=== PATIENT | female | born 2005 | race Two or more races ===

== ENCOUNTER → 2025-01-31 | Outpatient (CLI) | payer OTHER, SELFPAY ==
[2025-01-31 11:06] LABS: Collection Type, Urine Clean Catch
[2025-01-31 11:33] LABS: Basophils # (Auto) 0.0 Thou/mm3 (0.0-0.2); Basophils % (Auto) 0 % (0-2.5); Eosinophils # (Auto) 0.1 Thou/mm3 (0.0-0.5); Eosinophils % (Auto) 2 % (0-10); Hematocrit 45.4 % (36.0-46.0); Hemoglobin 15.0 g/dL (12.0-16.0); Immature Granulocytes Auto 0.01 Thou/mm3 (0.00-0.00); Lymphocytes # (Auto) 3.5 Thou/mm3 (1.0-5.0); Lymphocytes % (Auto) 46 % (10-50); Mean Corpuscular HGB Conc 33.0 g/dl (31.0-37.0); Mean Corpuscular Hemoglobin 29.4 pg (25.0-35.0); Mean Corpuscular Volume 89 fL (80-100); Monocytes # (Auto) 0.4 Thou/mm3 (0.0-0.8); Monocytes % (Auto) 6 % (0-12); Neutrophils # (Auto) 3.5 Thou/mm3 (1.8-7.7); Neutrophils % (Auto) 46 % (37-80); Nucleated Red Blood Cell # 0.00 Thou/mm3 (0.00-0.00); Nucleated Red Blood Cell % 0 /100 WBC (0); Platelet Count 245 Thou/mm3 (140-440); RDW Standard Deviation 44.3 fL (36.4-46.3); Red Blood Count 5.10 Miln/mm3 (4.00-5.20); White Blood Count 7.5 Thou/mm3 (4.5-11.0)
[2025-01-31 11:46] LABS: Alanine Aminotransferase 16 U/L (10-49); Albumin, Serum 4.5 gm/dL (3.5-5.0); Albumin/Globulin Ratio 1.6 (1.2-2.2); Alkaline Phosphatase 77 U/L (46-116); Anion Gap 9 (7-16); Aspartate Amino Transferase 16 U/L (0-34); BUN/Creatinine Ratio 11 Ratio (12-20); Bilirubin,Total 0.5 mg/dL (0.3-1.2); Blood Urea Nitrogen 9 mg/dL (9-23); Calcium 10.1 mg/dL (8.3-10.6); Calcium (Corrected) 10.1 mg/dL (8.5-10.1); Carbon Dioxide 26.0 mMol/L (20.0-31.0); Cardiac Risk Estimate 2.8 RATIO (3.7-5.6); Chloride 107 mMol/L (98-107); Cholesterol 204 mg/dL (132-200); Creatinine (Component) 0.8 mg/dL (0.6-1.3); Free T4 (Free Thyroxine) 1.23 ng/dL (0.89-1.76); Globulin 2.8 gm/dL (2.3-3.5); Glucose 85 mg/dL (74-106); HDL Cholesterol 74 mg/dL (40-60); LDL Cholesterol,Calculated 102 mg/dL (0-130); Osmolality,Calculated 280 (275-295); Potassium 4.2 mMol/L (3.4-5.1); Sodium 142 mMol/L (136-145); Thyroid Stimulating Hormone 2.48 uIU/mL (0.55-4.78); Total Protein 7.3 gm/dL (5.7-8.2); Triglycerides 140 mg/dL (30-150); eGFR > 60 See Note
[2025-01-31 11:50] LABS: Vitamin D 25 Hydroxy Total 19.4 ng/mL (7.3-40.2)
[2025-01-31 11:52] LABS: Bilirubin,Urine Negative (Negative); Blood,Urine Negative (Negative); Clarity,Urine Clear (Clear/Hazy); Color,Urine Yellow (Lt Yel-Yel); Culture Indicated,Urine Not Indicated; Glucose, Urine Negative (Negative); Ketones,Urine Negative (Negative); Leukocyte Esterase,Urine Negative (Negative); Nitrite,Urine Negative (Negative); PH,Urine 6.0 (5.0-7.0); Protein,Urine Negative (Neg - Trace); RBC,Urine 2 /hpf (0-3); Specific Gravity,Urine 1.028 (1.001-1.035); Squamous Epithelial Cell,Urine 3 /hpf (0-5); Urobilinogen,Urine Negative mg/dL (0.0-1.0); WBC,Urine 1 /hpf (0-5)
[2025-02-03 06:56] LABS: Thyroid Peroxidase Antibodies* <1 IU/mL (<9)
== END | disposition home or self-care (01) ==
PROVIDERS: PCP Nurse Practitioner Family; Referring Provider Nurse Practitioner Family; Visit Provider Nurse Practitioner Family
DX: Z00.00 Encounter for general adult medical examination without abnormal findings (principal); Z13.29 Encounter for screening for other suspected endocrine disorder; Z13.1 Encounter for screening for diabetes mellitus; Z13.0 Encounter for screening for diseases of the blood and blood-forming organs and certain disorders involving the immune mechanism; E03.9 Hypothyroidism, unspecified; N39.0 Urinary tract infection, site not specified; E55.9 Vitamin D deficiency, unspecified; Z13.220 Encounter for screening for lipoid disorders; Z79.899 Other long term (current) drug therapy
CPT/HCPCS: 36415; 80053; 80061; 81001; 82306; 84439; 84443; 85025; 86376

== ENCOUNTER 2025-03-26 11:02 | Emergency (ER) | payer OTHER, SELFPAY ==
[2025-03-26 11:27] VITALS: BP 97/60; PULSE 88; RESP 18; TEMP 36.8; O2SAT 98; BMI 17.8
--- NOTE | 2025-03-26 13:08 | PD.EDALLER ---
ED Allergic Reaction RME/HPI General Chief complaint: Allergic Reaction Stated complaint: POSSIBLE ALLERGIC REACTION TO NEW MEDICATION Time Seen by Provider: 03/26/25 12:38 Arrival date/time: 03/26/25 11:02 RME / HPI RME / HPI narrative: 19-year-old female who was recently placed on lamotrigine for mental health was advised to discontinue this after taking it for nearly 2 weeks by her doctor as she began to develop a rash last night and they advised that she come to the ER and get evaluated. Patient has taken Benadryl with minimal improvement. Denies shortness of breath, rash inside of her mouth, shortness of breath, vomiting. Related Data Previous Rx's ?Medication ?Instructions ?Recorded ibuprofen 100 mg/5 mL oral 10 ml PO Q6HR PRN pain 7 days ##0 08/27/14 suspension (Children's Motrin) prednisone 20 mg tablet 40 mg PO QDAY #10 tabs 03/26/25 Allergies Allergy/AdvReac Type Severity Reaction Status Date / Time No Known Allergies Allergy Mild Uncoded 08/27/14 19:36 ED Exam Narrative Physical exam: Constitutional: Patient alert and oriented. Well appearing. No acute distress. Not toxic appearing. Head: Normocephalic, atraumatic. Eyes: Periorbital regions bilaterally normal to inspection. Conjunctiva clear bilaterally. Sclera anicteric bilaterally. Pupils equal, round, reactive to light bilaterally. Extraocular movements intact bilaterally. Mouth/Throat: No angioedema. Mucous membranes moist. No stridor or muffled voice. No trismus. Handling secretions without difficulty. Airway widely patent. Neck: Supple. Trachea midline. No JVD. No nuchal rigidity. Normal range of motion. Respiratory: Normal effort. No accessory muscle use or respiratory distress. Lungs clear to auscultation bilaterally without rhonchi, wheezes, or crackles. Cardiovascular: RRR. Normal S1/S2. No murmurs or rubs. Radial pulses intact bilaterally. Abdomen: Soft. Non-distended. Non-tender throughout. No pulsatile mass. No guarding or rebound. Negative Painter?s sign. Negative McBurney?s point tenderness. Negative Rovsing?s. Back: No midline tenderness or step-offs. No CVA tenderness to palpation bilaterally. Upper Extremities: No gross deformities. Lower Extremities: No gross deformities. No edema or calf tenderness. Neuro: Speech normal. No gross motor or sensory deficits to upper or lower extremities bilaterally. GCS 15. CN II?XII grossly intact. Skin: Warm, dry, normal color. Positive erythematous papular rash with bright red borders and somewhat central clearing noted mainly on upper extremities and face sparing the remainder of her body. No intraoral lesions. Psych: Normal affect. Cooperative. Normal insight. Course Quality Measures none Orders Category Date Time Status DiphenhydrAMINE [Benadryl] Med 03/26/25 13:23 Discontinued 50 mg PO X1 ONE predniSONE Med 03/26/25 13:23 Discontinued 60 mg PO X1 ONE Vital Signs Vital signs: Vital Signs Temperature 98.2 F 03/26/25 11: Pulse Rate 88 03/26/25 11:27 Respiratory Rate 18 03/26/25 11:27 Blood Pressure 97/60 03/26/25 11:27 Pulse Oximetry (%) 98 03/26/25 11:27 Oxygen Delivery Method Room Air 03/26/25 11:27 Allergic Reaction MDM Narrative MDM Narrative:: MDM: Concern for EM minor No Nikolsky sign or mucosal sloughing or mucosal involvement therefor doubt EM major No desquamating features or significant pain to suggest the following (DRESS, SJS/TEN, AGEP, or erythroderma). No induration, fluctuance, severe warmth, or streaking to suggest bacterial cellulitis or abscess. No petechiae or raised purpura to suggest vasculitis, hemolytic, or thrombocytopenic process. No respiratory distress, mucosal swelling, or other findings to suggest anaphylaxis. No prolonged fever, mucocutaneous changes, conjunctivitis, or adenopathy to suggest Kawasaki disease or MIS-C. I offered lab work however mother and daughter declined they are agreeable to close follow-up and I have low suspicion for it advancing but to give them strict ER return precautions plan to treat with steroids and antihistamines, follow-up with PCP in 2 days. Patient to continue the discontinuation of her drug. Patient data External records reviewed:: None Clinical information provided by:: patient and parent Social determinants that could affect healthcare access:: none Patient has the following chronic illnesses:: As noted How is presenting disease/condition affected by chronic disease/condition?: uneffected by Evaluation data The following diagnostics were reviewed and interpreted by me:: other (specify) Lab and/or radiology exams considered but not ordered:: Additional Labs and radiology considered, but not ordered as they were not clinically indicated at this time. Interpretation Summary: None Medications / Prescriptions Medications or Prescriptions considered but not ordered:: I considered prescription management (both outpatient prescriptions AND drug treatment in the ER) and decided that this was necessary and was prescribed as charted. Medication administrations:: Medication Administration History Discontinued Medications Diphenhydramine HCl (Diphenhydramine 25 Mg Capsule) 50 mg PO X1 ONE Stop: 03/26/25 13:24 Last Admin: 03/26/25 13:38 Dose: 50 mg Documented By: Prednisone (Prednisone 20 Mg Tablet) 60 mg PO X1 ONE Stop: 03/26/25 13:24 Last Admin: 03/26/25 13:38 Dose: 60 mg Documented By: As noted Consultations Consultation(s) initiated? (list below): No Diagnosis Differential Diagnosis allergic reaction: anaphylaxis, allergic reaction and other Most likely diagnosis given after review of the tests above:: Erythema multiforme minor Admission Indicated Admission indicated?: not indicated Admission Request Was there a request for admission?: No Disposition Plan Disposition Plan: Discharge Discharge Attestation Discharge Attestation: The patient and all family members were given an opportunity to ask questions and understood the discharge instructions. Discharge instructions specifically effects, indications for sooner follow up or return to the emergency department, and the expected course of current diagnosis. Patient condition: Stable Discharge Plan Plan Patient Disposition: HOME (Self Care) Patient condition on transfer: Stable Prescriptions/Referrals Prescriptions/Med Rec: New prednisone 20 mg tablet 40 mg PO QDAY Qty: 10 0RF Taper: Prednisone Taper 20 mg DAILY for 2 Days and 0 Hour 10 mg DAILY for 2 Days and 0 Hour 5 mg DAILY for 7 Days and 0 Hour No Action ibuprofen [Children's Motrin] 100 MG/5 ML suspension 10 ml PO Q6HR PRN (Reason: pain) 7 Days Qty: 0 0RF Problem List Clinical Impression: Adverse reaction to drug, Erythema multiforme Patient/Caregiver Discharge Instructions Education Materials: ED Drug Reaction, Other, ED Erythema Multiforme Additional Instructions: Follow up with your primary medical doctor and a demolitionist within 24 hours. Return to the Emergency Room immediately for any new, worsening, continuing symptoms or any concerns at all. Return to the Emergency Room within 24 hours if you are unable to follow up with your primary medical doctor and a demolitionist within 24 hours. Do not take lamotrigine again. Take 50mg of benadryl every 4 hours, do not drive while taking it. Print Language: Kiswahili Stand Alone Forms: Dorita Award Info., Patient Portal Info Letter PA/COST ESTIMATING MANAGER Supervising Physician PA/COST ESTIMATING MANAGER Supervising Physician: Dr. Rosales
== END 2025-03-26 15:27 | disposition home or self-care (01) ==
LOC: SERX 13:44
PROVIDERS: Emergency Provider Physician Assistant; PCP Family Medicine
DX: L51.9 Erythema multiforme, unspecified (principal); T42.6X5A Adverse effect of other antiepileptic and sedative-hypnotic drugs, initial encounter
CPT/HCPCS: 99281; J7512; A9270